=== PATIENT | female | born 1995 | race Caucasian/White ===

== ENCOUNTER 2022-01-23 09:58 | Emergency (ER) | payer MEDICAID, OTHER ==
[2022-01-23 10:07] VITALS: BP 131/66
[2022-01-23] MEDS ORDERED: HYDROcod/ACETAM 5/325 MG TABLET PO STA (10:12)
--- NOTE | 2022-01-23 10:13 | ED Physician Documentation ---
PD HPI LOWER EXT INJURY - Stated complaint Stated Complaint: LEFT FOOT INJURY - Chief complaint Chief Complaint: Trauma Ext - History obtained from History obtained from: Patient (Coming down stairs yesterday and missed a step and injured her left foot hearing a pop and now has severe pain on the lateral side of the left foot unresponsive to ibuprofen. No other injuries. No possibility of .) Review of Systems Constitutional: reports: Reviewed and negative Eyes: reports: Reviewed and negative Cardiac: reports: Reviewed and negative Respiratory: reports: Reviewed and negative PD PAST MEDICAL HISTORY - Present Medications Home Medications: Ambulatory Orders Medication Instructions Recorded Confirmed HYDROcod/ACETAM 5/325 [[place]innett 5/325] 1 - 2 tab PO Q6H PRN #15 tablet 01/23/22 - Allergies Allergies/Adverse Reactions: Allergies Allergy/AdvReac Type Severity Reaction Status Date / Time No Known Drug Allergies Allergy Verified 01/23/22 10:07 PD ED PE NORMAL - Vitals Vital signs reviewed: Yes - General General: Alert and oriented X 3, No acute distress - Extremities Extremities: Other (Tender over the proximal fifth metatarsal and pain with range of motion of the fifth toe. No ankle or leg tenderness.) - Neuro Neuro: Alert and oriented X 3, Normal speech Results - Vitals Vitals: Vital Signs - 24 hr 01/23/22 10:05 Temperature 36.2 C L Heart Rate 74 Respiratory 16 Rate Blood Pressure 131/66 H O2 Saturation 100 Oxygen O2 Source Room air - Rads (name of study) L foot XR Radiology: EMP read contemporaneously Procedures - Splint (location) LLE Splint applied by: Physician Type of splint: Fiberglass, Short leg, Posterior Other: Patient tolerated well, No complications, Neurovascular intact, Crutches provided Departure - Departure Disposition: 01 Home, Self Care Clinical Impression: Fracture of fifth metatarsal bone Qualifiers: Encounter type: initial encounter Fracture type: closed Fracture alignment: nondisplaced Laterality: left Qualified Code(s): S92.355A - Nondisplaced fracture of fifth metatarsal bone, left foot, initial encounter for closed fracture Condition: Good Record reviewed to determine appropriate education?: Yes Instructions: ED Fx Foot Follow-Up: [facility] [Provider Group] Prescriptions: HYDROcod/ACETAM 5/325 [St[place]ett 5/325] 1 - 2 tab PO Q6H PRN #15 tablet PRN Reason: Pain Comments: I sent your prescription electronically to [facility] [place] in [place].. Keep the splint on and dry, do not remove it. Do not walk or bear weight on it. Call for an appointment with orthopedics today for sometime within the next week to week and a half. I am prescribing a short course of narcotic pain medication for you. These are potentially dangerous and addictive medications that should be used carefully. These medications may constipate you. Take an kwcw-gtl-ysbwhve stool softener (docusate) twice daily with plenty of water while taking these medications. If you go 24 hours without a bowel movement, take egtc-xly-zewcwpw miralax, per package instructions. Do not drink or drive while taking these medications. If you received narcotic or sedating medications while in the emergency department, do not drive for 24 hours. Store this medication in a safe, secure place and out of reach of children. It is a violation of federal law to give or sell this medication to another person or to use in a manner other than prescribed. The ED will not refill narcotic prescriptions, including prescriptions lost or stolen. To dispose of unwanted medications: 1. [facility] [address] in [place] has a medication drop box. They accept prescription medications (in pill form) Friday through Friday 9:00 a.m. to 5:00 p.m. 2. [facility] accepts prescription medications (in pill form only) for disposal year round. Call for more information. 3. Contact the [facility] for the next [facility] sponsored prescription drug collection event. , [phone], or [phone]; Note that many narcotic pain relievers also contain Tylenol/acetaminophen. Please ensure that your total dose of acetaminophen from all sources does not exceed 3 g (3000 mg) per day.
--- NOTE | 2022-01-23 10:34 | XRAY Report ---
PROCEDURE: Foot 3 View LT INDICATIONS: foot inj, 5th mt TECHNIQUE: 3 views of the foot were acquired. COMPARISON: None FINDINGS: Bones: Minimally displaced fracture in the proximal aspect of the fifth metatarsal diaphysis. No susp icious bony lesions. Soft tissues: No tibiotalar joint effusion. Achilles tendon appears normal. IMPRESSION: Minimally displaced fifth metatarsal fracture. Reviewed by: Anusha Tuttle MD on 01/23/2022 10:32 AM PDT Approved by: Anusha Tuttle MD on 01/23/2022 10:32 AM PDT Station ID: [id number]
== END 2022-01-23 11:18 | disposition home or self-care (01) ==
LOC: ED 09:58
DX: S92.355A Nondisplaced fracture of fifth metatarsal bone, left foot, initial encounter for closed fracture (principal); W10.9XXA Fall (on) (from) unspecified stairs and steps, initial encounter
CPT/HCPCS: 29515; 73630; 99283; A9270